=== PATIENT | male | born 1990 | race American Indian/Alaskan Native ===

== ENCOUNTER 2019-02-22 21:53 | Emergency (ER) | payer SELFPAY ==
[2019-02-22 22:17] VITALS: BP 148/82
--- NOTE | 2019-02-22 23:09 | Emergency Department Report ---
ED Lower Extremity HPI - General Chief Complaint: Extremity Injury, Lower Stated Complaint: LEFT FOOT INFECTED Time Seen by Provider: 02/22/19 22:52 Source: patient Mode of arrival: Ambulatory Limitations: No Limitations - Related Data Previous Rx's Medication Instructions Recorded Last Taken Type Clotrimazole 1% [Lotrimin] 1 applic TP BID #1 tube 02/22/19 Unknown Rx Allergies Allergy/AdvReac Type Severity Reaction Status Date / Time No Known Allergies Allergy Unverified 02/22/19 22:11 ED Review of Systems ROS: Stated complaint: LEFT FOOT INFECTED Other details as noted in HPI ED Past Medical Hx - Past Medical History Previous Medical History?: No - Surgical History Past Surgical History?: No - Social History Smoking Status: Current Every Day Smoker Substance Use Type: None - Medications Home Medications: Home Medications Medication Instructions Recorded Confirmed Last Taken Type Clotrimazole 1% [Lotrimin] 1 applic TP BID #1 tube 02/22/19 Unknown Rx ED Physical Exam - General Limitations: No Limitations General appearance: alert, in no apparent distress - Head Head exam: Present: atraumatic, normocephalic - Eye Eye exam: Present: normal appearance, EOMI. Absent: nystagmus - ENT ENT exam: Present: normal exam, normal orophraynx, mucous membranes moist, normal external ear exam - Neck Neck exam: Present: normal inspection, full ROM. Absent: tenderness, meningis mus - Respiratory Respiratory exam: Present: normal lung sounds bilaterally. Absent: respiratory distress - Cardiovascular Cardiovascular Exam: Present: regular rate, normal rhythm, normal heart sounds. Absent: bradycardia, tachycardia, irregular rhythm, systolic murmur, diastolic murmur, rubs, gallop - GI/Abdominal GI/Abdominal exam: Present: soft. Absent: distended, tenderness, rebound, rigid, pulsatile mass - Rectal Rectal exam: Present: deferred - Extremities Exam Extremities exam: Present: normal inspection, full ROM, other (patient found to have fungal-like rash noted in the intertrigo and his region between the fifth and fourth toe on the left side, and fourth and third toe on the left side. There is no redness, pus or streaking. The compartments are soft. 2+ pulses noted in the bilateral upper, lower extremities.) - Back Exam Back exam: Present: normal inspection. Absent: tenderness, CVA tenderness (R), CVA tenderness (L), paraspinal tenderness, vertebral tenderness - Neurological Exam Neurological exam: Present: alert, other (there is no facial droop. The tongue is midline. Extraocular movements are intact bilaterally. Patient speaking in full complete sentences. Shoulder shrug is intact bilaterally. Hearing is grossly intact bilaterally. Visual acuity intact to finger counting and color perception at a close distance. 5/5 strength 4 extremities. Sensation intact to light touch in 4 extremities.) - Psychiatric Psychiatric exam: Present: normal affect, normal mood - Skin Skin exam: Present: warm, dry, intact, normal color. Absent: rash ED Course Vital Signs 02/22/19 22:15 Temperature 98.1 F Pulse Rate 87 Respiratory 18 Rate Blood Pressure 148/82 O2 Sat by Pulse 98 Oximetry ED Lower Extremity MDM - Lab Data Vital Signs 02/22/19 22:15 Temperature 98.1 F Pulse Rate 87 Respiratory 18 Rate Blood Pressure 148/82 O2 Sat by Pulse 98 Oximetry - Medical Decision Making Differential diagnosis, including not limited to: Tinea pedis Assessment and plan: 28-year-old gentleman with isolated left-sided tinea pedis without additional complaints. He'll be started on appropriate topical antifungal's. He can be discharged at this time. Does not appear to have an emergent condition at this time. We discussed proper pedal hygiene. Critical care attestation.: If time is entered above; I have spent that time in minutes in the direct care of this critically ill patient, excluding procedure time. ED Disposition Clinical Impression: Tinea pedis Disposition: DC-01 TO HOME OR SELFCARE Is pt being admited?: No Does the pt Need Aspirin: No Condition: Stable Instructions: Tinea Pedis (ED) Additional Instructions: Recommend keeping the left foot clean and dry. Use the topical antifungal cream as directed. Make certain to wash with gentle soap and water once every 12-24 hours. Symptoms may take 4-6 weeks to resolve. Follow-up with a primary care doctor or welding supervisor within the next 8 weeks. Return to emergency room right away with new, worsened or different symptoms or symptoms not present on the initial emergency room evaluation. Referrals: [facility] [Provider Group] - 3-5 Days [facility] [Provider Group] - 3-5 Days
== END 2019-02-22 23:19 | disposition home or self-care (01) ==
LOC: ED 21:53
DX: B35.3 Tinea pedis (principal); F17.200 Nicotine dependence, unspecified, uncomplicated
CPT/HCPCS: 99282